=== PATIENT | male | born 1975 | race Caucasian/White ===

== ENCOUNTER → 2016-03-04 | Outpatient (CLI) | payer MEDICAID ==
--- NOTE | 2016-03-04 20:59 | MR ---
EXAMINATION TYPE: MR cervical spine wo con DATE OF EXAM: 03/04/2016 8:17 PM COMPARISON: NONE HISTORY: neck, back, and Left shoulder pain TECHNIQUE: Multiplanar, multisequence images of the cervical spine were acquired. C2-C3: No evidence for degenerative disc disease. No disc bulge/herniation or protrusion. No Canal stenosis. Foramina are patent bilaterally. C3-C4: Lateral extension of endplate disc complex, right posterior paracentral disc herniation causes anterolateral mass effect on the thecal sac and encroaches on the right neural foramen and may conta ct the anterior cervical cord. No significant central stenosis. C4-C5: Loss of disc height and signal present, small central posterior disc herniation may contact th e anterior cervical cord. Some right-sided foraminal encroachment is present. C5-C6: Posterior extension of endplate disc complex causes mass effect on the anterior thecal sac and extends laterally to cause bilateral foraminal encroachment. There is mild central canal stenosis an d possibly contacting the anterior cervical cord in the paraspinal locations left greater than right. There is associated loss of disc height and signal. C6-C7: Small posterior right paracentral extension of endplate disc complex causes minimal anterior m ass effect on the thecal sac No Canal stenosis. Foramina are patent bilaterally. C7-T1: No evidence for degenerative disc disease. No disc bulge/herniation or protrusion. No Canal stenosis. Foramina are patent bilaterally. Cervical segments are intact. There is normal alignment. Cervical spinal cord shows central increas ed signal felt likely to represent prominent aqueduct or small syrinx. Craniovertebral junction rela tionships are within normal limits. Cervical vertebral bodies show preserved height and alignment. S pondylosis is present with loss of disc height at C5-6, there is minimal endplate discogenic marrow s ignal change. There may be a thoracic scoliosis. IMPRESSION: Degenerative disc disease as described. Multilevel disc herniation. Probable prominent central aquedu ct rather than syrinx. Follow-up postcontrast images as indicated. Additional findings above.
== END | disposition home or self-care (01) ==
LOC: RADMRIMAIN 19:45
PROVIDERS: ATTEND Orthopaedic Surgery Orthopaedic Surgery of the Spine
DX: M50.11 Cervical disc disorder with radiculopathy, high cervical region (principal)
CPT/HCPCS: 72141

== ENCOUNTER → 2016-05-26 | Outpatient (CLI) | payer MEDICAID ==
[2016-05-26 14:20] VITALS: BP 110/91; PULSE 91; RESP 16
--- NOTE | 2016-05-26 14:49 | P.HPIM ---
History of Present Illness H&P Date: 05/26/16 Chief Complaint: neck and arm pain This is a 41-year-old patient referred by Dr. Martinez for chronic pain in neck, low back, and arms, worse in left shoulder. Patient has been taking medications including Tylenol #3 from neurosurgeon with some relief, but did undergo cervical JJ x 2 with Singh that has helped him for > 1 month. Patient denies adverse drug effects from medications. Patient also denies new- onset weakness, bowel/bladder incontinence, or any other signs or symptoms of cauda equina syndrome. There are no signs of acute intoxication, and no indications of medication diversion or overuse. Patient notes that pain worsens significantly with movement of his neck and standing and improves with ice, injections, and medication. Patient has used several types of medications for pain, including NSAIDS, OPIOIDS, TRAMADOL, BENZODIAZEPINES. Patient HAS NOT had surgery. Patient HAS had injections previously (JOSE M x 2). Patient HAS NOT had physical therapy recently. In addition to above, 13-point review of systems is also negative for chest pain , shortness of breath, changes in vision, changes in hearing, new onset weakness , abdominal pain, diarrhea, extreme fatigue, malaise, fever, skin changes, homicidal or suicidal ideation, or bowel or bladder incontinence. Vital Signs: Reviewed in EMR Gen: WDWN, AAOx3, NAD HEENT: NCAT, EOMI, hearing grossly normal Pulm: resp unlabored Abd: soft, NT, ND Neck: supple, trachea midline ROM in flexion cervical spine: reduced ROM in extension cervical spine: reduced Cervical paravertebral tenderness: + Cervical Facet tenderness: + bilateral Spurling's: +RUE Upper extremity: decreased hook puller strength RUE compared to LUE Neuro: CN II-XII grossly intact, muscle strength lower extremities PRESERVED Medications and Allergies Home Medications Medication Instructions Recorded Confirmed Type Citalopram Hydrobromide [CeleXA] 40 mg PO DAILY 05/26/16 05/26/16 History Allergies Allergy/AdvReac Type Severity Reaction Status Date / Time No Known Allergies Allergy Verified 05/26/16 13:56 Physical Exam Vitals: Intake and Output 05/25/16 05/26/16 05/26/16 22:59 06:59 14:59 Other: Weight 86.183 kg Patient Weight 05/27/16 06:59 Weight 86.183 kg Results Comments: MRI cervical spine without contrast demonstrates, at the C3-C4 level lateral extension of the endplate disc complex of the right posterior paracentral disc herniation causing anterolateral mass effect on the thecal sac and encroaching on the right neural foramen. At the C4-C5 level there is a small central posterior disc herniation that may contact the anterior cervical cord. C5-C6 level there is posterior extension of the endplate disc complex causing mass effect on the anterior thecal sac extending laterally to cause bilateral foraminal encroachment. There is mild central canal stenosis. At the C6-C7 level there is small posterior right paracentral extension of endplate disc complex causing minimal anterior mass effect on the thecal sac. Assessment and Plan (1) Neural foraminal stenosis of cervical spine Status: Chronic (2) Cervical spinal stenosis Status: Chronic (3) Degenerative disc disease, cervical Status: Chronic Plan: 1. Explanation: Opioid and psychological risk scores were reviewed. Diagnoses , prognoses, and multiple treatment options including but not limited to physical therapy, interventional therapies, adjuvant medical therapies, narcotic medication therapies, and surgery were discussed with the patient and all questions were answered to the patient's satisfaction. 2. Opioid agreement: Patient signed narcotic agreement, and was orally counseled to not overuse, abuse, divert, or cell medications, and to take them as prescribed by only 1 healthcare provider. The patient was also counseled to take medications as prescribed by only 1 healthcare provider and to store opioid medications in the safe and preferably locked location. Patient was also counseled against driving or operating heavy equipment while using narcotic medications and also not use alcohol or any illicit or recreational drugs. The patient verbalized understanding that lack of compliance with any of the above and likely result in failure to renew narcotic prescriptions, possible discharge from the clinic, and possible legal ramifications thereafter if indicated. 3. Counseling: The patient was counseled extensively on BODY MASS INDEX, EXERCISE. Specifically, the patient was instructed regarding the importance of weight control and exercise in the context of both chronic pain and overall health. 4. Procedures: cervical JJ in future 5. Consultations: none 6. Investigations: none 7. Medications: Tylenol #3 #30 with one refill 8. Disposition: f/u for re-eval 8 weeks; patient can call sooner to schedule cervical JJ if pain worsens PQRS measures: 1-Patient's medications are documented in the chart. 2-Tobacco use is negative, counseling given 3-Patient has not had a pneumococcal vaccine. 4-Advanced care planning discussed, patient unable to give. 5-Opioid contract signed with the patient. 6-Pain positive, follow-up visit or procedure scheduled 7-Patient's blood pressure measured and documented, WNL. 8-Patient's weight was measured, and body mass index ABOVE the normal limits, and counseling was done. Patient instructed to follow up with PCP. 9-Patient WAS NOT identified as an unhealthy alcohol user. Time with Patient: Greater than 30
== END | disposition home or self-care (01) ==
LOC: PNWHC3 13:22
PROVIDERS: ATTEND Anesthesiology
DX: M48.02 Spinal stenosis, cervical region (principal); M99.71 Connective tissue and disc stenosis of intervertebral foramina of cervical region; M50.30 Other cervical disc degeneration, unspecified cervical region; Z79.891 Long term (current) use of opiate analgesic; Z79.899 Other long term (current) drug therapy
CPT/HCPCS: 80307; 99211

== ENCOUNTER → 2016-07-15 | Outpatient (CLI) | payer MEDICAID ==
[2016-07-15 12:22] VITALS: BP 124/90; PULSE 85; RESP 16
== END | disposition home or self-care (01) ==
LOC: PNWHC3 11:54
PROVIDERS: ATTEND Specialist
DX: Z53.9 Procedure and treatment not carried out, unspecified reason (principal)

== ENCOUNTER 2017-07-29 07:43 | Day surgery (SDC) | payer MEDICAID ==
[2017-07-26 18:27] VITALS: BMI 27.2
[2017-07-29] MEDS ORDERED: LIDOCAINE 1% 20 ML VIAL (10MG/ML) FOR IV START INTRADERMA ONE (07:47)
[2017-07-29 07:53] VITALS: TEMP 98
[2017-07-29] MEDS ORDERED: LACTATED RINGERS 1,000 ML IV ONE (07:56)
[2017-07-29] MEDS ORDERED: LACTATED RINGERS 1,000 ML IV SCH (08:15)
--- NOTE | 2017-07-29 08:51 | P.PCN ---
Date of Procedure: 07/29/17 Surgeon: Jc Golden Pathology: none sent Condition: stable Disposition: PACU Description of Procedure: PREOPERATIVE DIAGNOSIS: Cervical radiculopathy. POSTOPERATIVE DIAGNOSIS: Cervical radiculopathy. PROCEDURE 1. Cervical epidural steroid injection under fluoroscopic guidance, C7-T1 level. 2. Cervical epidurogram. ANESTHESIA: Local anesthesia with 1% lidocaine and IV sedation with versed/ fentanyl EBL: Minimal PROCEDURE INDICATION: The patient with neck pain and radiculitis unresponsive to conservative treatment consents for procedure. No use of blood thinners. PROCEDURE DESCRIPTION / TECHNIQUE: The patient was seen and identified in the preoperative area. Risks, benefits, complications, and alternatives were discussed with the patient (including but not limited to incomplete pain relief, bleeding, infection, nerve damage, and allergies to medications), the patient agreed to proceed with the procedure and signed the consent after all questions were answered. Patient was taken to the OR and time out was completed to verify proper patient , position, laterality of pain, and allergies. Pt was placed in the prone position. A pillow was placed under the patients chest to increase the cervical interlaminar space. The cervical area was prepped and draped in the usual sterile fashion. Critical pause was taken. Vital signs were closely monitored during the procedure. Conscious sedation was used during the procedure to decrease patients anxiety. Using anterior-posterior fluoroscopy, the C7-T1 interlaminar space was identified and the skin over this site was marked and then infiltrated with 1% lidocaine subcutaneously in a paramedian fashion. Subsequently, a 20-gauge 3-1/2 -inch Tuohy epidural needle was inserted and advanced toward the epidural space by means of the loss of resistance technique and guided by AP and lateral fluoroscopy. After negative aspiration for blood or CSF and in the absence of paresthesias, the correct needle position in the epidural space was verified with the injection of 1 mL of the water soluble contrast dye Isovue 200 and observing an excellent epidurogram with the epidural spread of the dye, after negative aspiration for blood and CSF and in the absence of paresthesias. Again after negative aspiration, a 4 ml mixture containing 20 mg of Decadron and 2 ml of preservative free Normal Saline solution was injected and a washout of epidurogram was seen. Needle was withdrawn intact, skin was cleansed, and bandages were applied. COMPLICATIONS: None COMMENTS: DISPOSITION / PLANS: The patient was placed in a supine position and transferred to the recovery area in a stable condition for observation. There was no evidence of upper extremity motor or sensory deficit after the procedure. Patient was discharged from the recovery room after meeting discharge criteria. Home discharge instructions were given to the patient by the staff. The patient was reexamined prior to discharge and there were no issues. The patient will schedule a repeat JOSE M in 3-4 weeks.
[2017-07-29] MEDS ORDERED: IV FLUID CONTINUATION 1,000 ML IV ONE ×2 (08:55)
--- NOTE | 2017-07-29 09:05 | FL ---
Fluoroscopy HISTORY: Pain 5 seconds fluoroscopy time supplied to the referring clinician. 3 intraoperative C-arm images docume nt the procedure. See dictated report from anesthesia.
[2017-07-29 09:20] VITALS: BP 117/84; PULSE 88; RESP 18
== END 2017-07-29 09:23 | disposition home or self-care (01) ==
LOC: ORPAIN 07:43
PROVIDERS: ATTEND Anesthesiology
DX: M54.12 Radiculopathy, cervical region (principal); M96.1 Postlaminectomy syndrome, not elsewhere classified
CPT/HCPCS: 62321; J2250; J1100; J3010; Q9966

== ENCOUNTER 2017-08-17 07:22 | Day surgery (SDC) | payer BC, MEDICAID ==
[2017-08-12 15:16] VITALS: BMI 27.2
[~2017-08-17 07:22] MED LIST: LACTATED RINGERS 1,000 ML IV SCH
[2017-08-17 08:14] VITALS: RESP 16; TEMP 97.7
[2017-08-17] MEDS ORDERED: LIDOCAINE 1% 20 ML VIAL (10MG/ML) FOR IV START INTRADERMA ONE (08:15)
--- NOTE | 2017-08-17 09:01 | P.PCN ---
Date of Procedure: 08/17/17 Procedure(s) Performed: . PROCEDURE 1. Cervical epidural steroid injection under fluoroscopic guidance, C7-T1 2. Cervical epidurogram. PREOPERATIVE DIAGNOSIS: 1- Cervical radiculopathy. POSTOPERATIVE DIAGNOSIS: : 1- Cervical radiculopathy. ANESTHESIA: Local anesthesia with 1% [id number] , and IV sedation with Versed 1 mg and Fentanyl 50 mcg. EBL 0 PROCEDURE INDICATION: The patient with neck pain and radiculitis unresponsive to conservative treatment consents for procedure. PROCEDURE DESCRIPTION / TECHNIQUE: The patient was seen and identified in the preoperative area. Risks, benefits, complications, including but not limited to infections ,bleeding , allergic reactions to the medications ,and not complete pain releife, and alternatives were discussed with the patient, the patient agreed to proceed with the procedure and signed the consent. Patient was taken to the OR and time out was completed. The patient was placed in the prone position on the procedure table. A pillow was placed under the patients chest to increase the cervical interlaminar space. The cervical area was prepped and draped in the usual sterile fashion. Vital signs were closely monitored during the procedure. Conscious sedation was used during the procedure to decrease patients anxiety. Using anterior-posterior fluoroscopy, the C7-T1 interlaminar space was identified and the skin over this site was marked and then infiltrated with 1% lidocaine 3 ml subcutaneously. Subsequently, a 20-gauge 3-1/2-inch Tuohy epidural needle was inserted and advanced toward the epidural space by means of the ``hanging-drop technique and guided by AP and lateral fluoroscopy. The correct needle position in the epidural space was verified with the injection of 2 mL of the water soluble contrast dye Isovue-200 and observing an excellent epidurogram with the epidural spread of the dye, after negative aspiration for blood and CSF and in the absence of paresthesias. Again after negative aspiration, mixture containing 20 mg Dexamethasone and 2 ml of preservative-free normal saline injected and a washout of epidurogram was seen. Needle was withdrawn intact, skin was cleansed, and bandages were applied. Complications= none. Disposition= patient was placed in supine position and transferred to the recovery room area in stable condition and there was no evidence of upper or lower extremity motor or sensory deficit after the procedure patient was discharged from recovery room after discharge criteria met and home discharge instructions was given by the staff and patient will follow with the pain clinic in 2-4 weeks
[2017-08-17] MEDS ORDERED: IV FLUID CONTINUATION 1,000 ML IV ONE (09:16)
[2017-08-17 09:29] VITALS: BP 115/76; PULSE 74
--- NOTE | 2017-08-17 10:52 | FL ---
Fluoroscopy HISTORY: Pain 3 seconds fluoroscopy time supplied to the referring clinician. 1 intraoperative C-arm images docume nt the procedure. See dictated report from anesthesia.
== END 2017-08-17 09:48 | disposition home or self-care (01) ==
LOC: ORPAIN 07:22
PROVIDERS: ATTEND Specialist
DX: M54.16 Radiculopathy, lumbar region (principal)
CPT/HCPCS: 62321; J1100; J3010

== ENCOUNTER 2018-06-20 13:58 | Day surgery (SDC) | payer BC ==
[2018-06-17 10:33] VITALS: BMI 25.8
--- NOTE | 2018-06-19 16:58 | HP ---
HISTORY AND PHYSICAL REASON FOR ADMISSION: Surgery is scheduled for 06/20/2018. HISTORY OF PRESENT ILLNESS: Jhonny Ray is a 43-year-old patient seen with an injury to his right thumb with probable nail bed laceration. We discussed options. I reviewed repair nail bed laceration. Procedure, risks, complications, benefits, recovery, he was agreeable. Consent was obtained. PAST MEDICAL HISTORY: Noncontributory. PAST SURGICAL HISTORY: Noncontributory. MEDICATIONS ARE: None. ALLERGIES: None reported. SOCIAL HISTORY: Denies tobacco use. PHYSICAL EXAMINATION: Physical evaluation of his right hand, he has obvious ecchymosis of the right thumb area including the entire nail. The nail is lifted up with swelling at the matrix proximally. There was good perfusion and sensation distally. RADIOGRAPHS: Radiographs of the right thumb failed to reveal any acute osseous abnormality. IMPRESSION: Right thumb nail bed laceration. PLAN: Repair right thumb nail bed laceration. Surgery scheduled for 06/20/2018. MMODL / IJN: [id number] /
[~2018-06-20 13:58] MED LIST changes: -LACTATED RINGERS 1,000 ML IV SCH; +ceFAZolin IN SWFI 2 GM/20 ML SYRINGE IVP ONE
[2018-06-20 14:23] VITALS: RESP 16; TEMP 97.3
[2018-06-20] MEDS ORDERED: LIDOCAINE 1% 20 ML VIAL (10MG/ML) FOR IV START INTRADERMA ONE (14:34)
[2018-06-20] MEDS ORDERED: LACTATED RINGERS 1,000 ML IV ONE (14:34)
[2018-06-20] MEDS ORDERED: ONDANSETRON 4 MG/2 ML VIAL IVP ONE (14:49)
[2018-06-20] MEDS ORDERED: PROPOFOL 10 MG/ML 20 ML VIAL IV ONE (15:32)
[2018-06-20] MEDS ORDERED: fentaNYL (PF) 50 MCG/ML 2 ML AMP ONE (15:32)
[2018-06-20] MEDS ORDERED: MIDAZOLAM 2 MG/2 ML VIAL ONE (15:32)
[2018-06-20] MEDS ORDERED: BUPIVACAINE (PF) 0.5% 30 ML VIAL SQ ONE ×2 (15:42)
--- NOTE | 2018-06-20 16:07 | P.OP ---
Date of Procedure: 06/20/18 Preoperative Diagnosis: Right thumb nailbed laceration Postoperative Diagnosis: Same Procedure(s) Performed: Repair 1 cm nail bed laceration Anesthesia: MAC, local Surgeon: George Mendoza Estimated Blood Loss (ml): 0 Pathology: none sent Condition: stable Disposition: PACU Indications for Procedure: 43-year-old patient seen with a right thumb nailbed laceration. I recommended repair. He was agreeable. Consent was obtained. Operative Findings: see description of procedure Description of Procedure: The patient was taken to the operative suite. The patient received IV sedation by the department of anesthesia. The right upper extremity was prepped and draped in the normal sterile orthopedic fashion. A digital block was achieved to the right thumb utilizing 10 mL half percent plain Marcaine. Once sufficient local analgesia was noted I utilized a Lehr drain for tourniquet of the right thumb. I then remove the right thumb nail. I evacuated the hematoma. I noted approximately 1 cm nail bed laceration directly in the center of the thumbnail. I irrigated the laceration out with saline solution. I repaired this with 2 interrupted 4-0 Vicryl sutures. This approximate the nailbed laceration nicely. The nail was now placed back into the germinal matrix. The Annalise drain was released with immediate capillary refill noted to the digit. Sterile dressings were applied. The patient was awakened having tolerated procedure well.
[2018-06-20 16:40] VITALS: BP 116/79; PULSE 61
== END 2018-06-20 16:50 | disposition home or self-care (01) ==
LOC: OR 13:58
PROVIDERS: ATTEND Orthopaedic Surgery
DX: S61.111A Laceration without foreign body of right thumb with damage to nail, initial encounter (principal); M50.20 Other cervical disc displacement, unspecified cervical region; Z79.1 Long term (current) use of non-steroidal anti-inflammatories (NSAID)
CPT/HCPCS: 11760; J2250; J2405; J3010; J2704; J0690

== ENCOUNTER 2018-11-11 15:58 | Emergency (ER) | payer BC, OTHER ==
[2018-11-11 16:01] VITALS: BP 141/90; PULSE 69; RESP 18; TEMP 97.6
[2018-11-11] MEDS ORDERED: KETOROLAC 60 MG/2 ML VIAL IM STA (16:52)
--- NOTE | 2018-11-11 17:01 | XR ---
EXAMINATION TYPE: XR humerus RT DATE OF EXAM: 11/11/2018 COMPARISON: NONE HISTORY: Pain TECHNIQUE: 3 views FINDINGS: I see no fracture nor dislocation. Shoulder joint and elbow joint appear intact. IMPRESSION: Negative right humerus exam.
--- NOTE | 2018-11-11 17:17 | ED ---
General Adult HPI - General Chief complaint: Extremity Injury, Upper Stated complaint: IHS-Arm injury Time Seen by Provider: 11/11/18 16:02 Source: patient, RN notes reviewed, old records reviewed Mode of arrival: ambulatory Limitations: no limitations - History of Present Illness Initial comments: 43-year-old male patient with no pertinent past medical history presents ED chief complaint of right arm injury. 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 Patient currently has pain in the region of right biceps tendon insertion. Patient has a full active range of motion arm. Denies any other complaints at this time. Systemic: Pt denies fatigue, fever/chills, rash. Pt denies weakness, night sweats, weight loss. Neuro: Pt denies headache, visual disturbances, syncope or pre-syncope. HEENT: Pt denies ocular discharge or irritation, otalgia, rhinorrhea, pharyngitis or notable lymphadenopathy. Cardiopulmonary: Pt denies chest pain, SOB, heart palpitations, dyspnea on exertion. Abdominal/GI: Pt denies abdominal pain, n/v/d. : Pt denies dysuria, burning w/ urination, frequency/urgency. Denies new onset urinary or bowel incontinence. MSK: Pt denies loss of strength or function in extremities. Neuro: Pt denies new onset weakness, paresthesias. - Related Data Home Medications Medication Instructions Recorded Confirmed No Known Home Medications 11/11/18 11/11/18 Allergies Allergy/AdvReac Type Severity Reaction Status Date / Time No Known Allergies Allergy Verified 11/11/18 16:01 Review of Systems ROS Statement: Those systems with pertinent positive or pertinent negative responses have been documented in the HPI. ROS Other: All systems not noted in ROS Statement are negative. Past Medical History Past Medical History: Musculoskeletal Disorder Additional Past Medical History / Comment(s): CERVICAL HERNIATED DISCS-HX OF STEROID INJECTIONS., INJURY TO RIGHT THUMB NAIL. History of Any Multi-Drug Resistant Organisms: None Reported Additional Past Surgical History / Comment(s): CERVICAL STEROID INJ, surgical repair of right thumb nail Past Anesthesia/Blood Transfusion Reactions: No Reported Reaction Additional Past Anesthesia/Blood Transfusion Reaction / Comment(s): NO ANESTHESIA HX Past Psychological History: Anxiety, Depression Smoking Status: Never smoker Past Alcohol Use History: Occasional Past Drug Use History: None Reported - Past Family History Mother Family Medical History: Cancer Additional Family Medical History / Comment(s): BREAST CANCER General Exam - General Exam Comments Initial Comments: Constitutional: NAD, AOX3, Pt has pleasant affect. HEENT: NC/AT, trachea midline, neck supple, no lymphadenopathy. Posterior pharynx non erythematous, without exudates. External ears appear normal, without discharge. Mucous membranes moist. Eyes PERRLA, EOM intact. There is no scleral icterus. No pallor noted. Cardiopulmonary: RRR, no murmurs, rubs or gallops, no JVD noted. Lungs CTAB in anterior and posterior montalvo. No peripheral edema. Abdominal exam: Abdomen soft and non-distended. Abdomen non-tender to palpation in all 4 quadrants. Bowel sounds active in LLQ. No hepatosplenomegaly. No ecchymosis Neuro: CN II-XII grossly intact. No nuchal rigidity. No raccon eyes, no mclean sign, no hemotympanum. No cervical spinal tenderness. MSK: Full active range of motion of right upper extremity. Tenderness to palpation at location of proximal biceps insertion. Neurovascularly intact distally. No skin changes or ecchymosis. No posterior calf tenderness bilaterally, homans sign negative bilaterally. Posterior tibialis and radial pulse +2 bilaterally. Sensation intact in upper and lower extremities. Full active ROM in upper and lower extremities, 5/5 stregnth. Limitations: no limitations Course Vital Signs 11/11/18 15:59 Temperature 97.6 F Pulse Rate 69 Respiratory 18 Rate Blood Pressure 141/90 O2 Sat by Pulse 97 Oximetry Medical Decision Making - Medical Decision Making 43-year-old male patient with no pertinent past medical history presents ED chief complaint of right arm injury. 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 Patient currently has pain in the region of right biceps tendon insertion. Patient has a full active range of motion arm. Denies any other complaints at this time. Pt VSS, afebrile. Physical exam displayed: Full active range of motion of right upper extremity. Tenderness to palpation at location of proximal biceps insertion. Neurovascularly intact distally. No skin changes or ecchymosis. Plain film humerus did not display acute process. Patient placed in sling. Discharged with outpatient orthopedic follow-up. Pt requests to f/u [facility] Dr. Mendoza. Case discussed with Dr. Fang. Return precautions discussed. Disposition Clinical Impression: Arm injury Disposition: HOME SELF-CARE Condition: Stable Instructions (If sedation given, give patient instructions): Tendon Rupture (ED) Additional Instructions: Patient to adhere to previously discussed treatment plan and will take medication(s) as directed. Patient to follow up with PCP in 1-2 days. Patient to return to ED if symptoms do not improve. Continue to use sling, use Tylenol and Motrin for pain. Follow up with orthopedic consult tomorrow. Is patient prescribed a controlled substance at d/c from ED?: No Referrals: Shyanne Umana MD [Primary Care Provider] - 1-2 days George Mendoza DO [Doctor of Osteopathic Medicine] - 1-2 days
== END 2018-11-11 17:25 | disposition home or self-care (01) ==
LOC: EC 15:58
DX: S49.91XA Unspecified injury of right shoulder and upper arm, initial encounter (principal); Z87.39 Personal history of other diseases of the musculoskeletal system and connective tissue; X50.9XXA Other and unspecified overexertion or strenuous movements or postures, initial encounter; Y93.89 Activity, other specified; Y92.512 Supermarket, store or market as the place of occurrence of the external cause; Y99.0 Civilian activity done for income or pay
CPT/HCPCS: 99284; 96372; 73060; J1885

== ENCOUNTER → 2018-11-15 | Outpatient (CLI) | payer OTHER ==
[2018-11-15 16:07] LABS: Potassium 4.3 mmol/L (3.5-5.1)
[2018-11-15 16:17] LABS: Basophils % (A) 1 %; Eosinophils # (A) 0.1 k/uL (0-0.7); Eosinophils % (A) 2 %; HCT 44.4 % (39.0-53.0); HGB 14.7 gm/dL (13.0-17.5); Lymphocytes # (A) 1.5 k/uL (1.0-4.8); Lymphocytes % (A) 32 %; MCH 31.4 pg (25.0-35.0); MCHC 33.1 g/dL (31.0-37.0); MCV 94.8 fL (80.0-100.0); Mean Platelet Volume 7.3; Monocytes # (A) 0.3 k/uL (0-1.0); Monocytes % (A) 7 %; Neutrophils # (A) 2.5 k/uL (1.3-7.7); Neutrophils % (A) 56 %; Platelet Count 268 k/uL (150-450); RBC 4.68 m/uL (4.30-5.90); RDW 14.9 % (11.5-15.5); WBC 4.5 k/uL (3.8-10.6)
== END | disposition home or self-care (01) ==
LOC: LABPAT 15:13
PROVIDERS: ATTEND Orthopaedic Surgery
DX: Z01.812 Encounter for preprocedural laboratory examination (principal); S46.291D Other injury of muscle, fascia and tendon of other parts of biceps, right arm, subsequent encounter
CPT/HCPCS: 36415; 80051; 85025

== ENCOUNTER 2018-11-17 12:18 | Day surgery (SDC) | payer BC, OTHER ==
[2018-11-16 11:59] VITALS: BMI 25.7
--- NOTE | 2018-11-16 19:47 | HP ---
HISTORY AND PHYSICAL DATE OF SURGERY: 11/17/2018 Jhonny Ray is a 43-year-old patient seen with a right distal biceps tendon rupture. I recommended right distal biceps tendon repair. I reviewed the procedure, risks, complications, benefits and recovery. The patient was agreeable. Consent was obtained. PAST MEDICAL HISTORY: Noncontributory. PAST SURGICAL HISTORY: Noncontributory. DAILY MEDICATIONS: None. ALLERGIES: NONE. SOCIAL HISTORY: Denies tobacco use. PHYSICAL EVALUATION RIGHT ELBOW: There is diffuse ecchymosis along the antecubital fossa area. The distal biceps is not palpable. There is tenderness along the proximal radius and biceps tendon distally. There is weakness with flexion of the elbow and supination of the forearm. His distal neurovascular exam is intact. RADIOGRAPHS: Radiographs of the right elbow failed to reveal any osseous abnormality. IMPRESSION: Right distal biceps tendon rupture. PLAN: Right distal biceps tendon repair. MMODL / IJN: [id number] /
[~2018-11-17 12:18] MED LIST changes: +DEXAMETHASONE SOD PHOSPHATE 10 MG/ML 1 ML VIAL IV ONE; +HYDROmorphone 0.5 MG/0.5 ML SYRINGE IVP PRN; +LACTATED RINGERS 1,000 ML IV SCH; +LIDOCAINE 1% 20 ML VIAL (10MG/ML) FOR IV START INTRADERMA PRN; +MIDAZOLAM 2 MG/2 ML VIAL IV PRN; +ONDANSETRON 4 MG/2 ML VIAL IVP ONE; -ceFAZolin IN SWFI 2 GM/20 ML SYRINGE IVP ONE; +fentaNYL (PF) 50 MCG/ML 2 ML AMP IV PRN
[2018-11-17] MEDS ORDERED: MIDAZOLAM (PF) 2 MG/2 ML VIAL IVP ONE (13:29)
[2018-11-17] MEDS ORDERED: PROPOFOL 10 MG/ML 20 ML VIAL IV ONE (13:59)
[2018-11-17] MEDS ORDERED: ROPIVACAINE 5 MG/ML 30 ML VIAL ONE (13:59)
[2018-11-17] MEDS ORDERED: LIDOCAINE 1% INJ 10MG/ML (20 ML MDV) ONE (13:59)
[2018-11-17] MEDS ORDERED: DEXAMETHASONE SOD PHOSPHATE 4 MG/ML 1 ML VIAL ONE (13:59)
[2018-11-17] MEDS ORDERED: SUCCINYLCHOLINE CHLORIDE 100 MG/5 ML SYR IV ONE (13:59)
[2018-11-17] MEDS ORDERED: ceFAZolin 1,000 MG in SODIUM CHLORIDE 0.9% 1,000 ML IRRIGATION ONE (14:44)
[2018-11-17 15:49] VITALS: TEMP 96.8
--- NOTE | 2018-11-17 15:50 | P.OP ---
Date of Procedure: 11/17/18 Preoperative Diagnosis: Right distal biceps tendon rupture Postoperative Diagnosis: Right distal biceps tendon rupture Procedure(s) Performed: Right distal biceps tendon repair Implants: 1 [employer] Endobutton and 1 [employer] 8.0 bio composite tenodesis screw Anesthesia: GETA, regional (Interscalene block) Surgeon: George Mendoza [employer] Instructor #1: Hardik Erazo Estimated Blood Loss (ml): 15 Pathology: none sent Condition: stable Disposition: PACU Indications for Procedure: 43-year-old patient seen with a right distal biceps tendon rupture. I recommended repair. The patient was agreeable and consent was obtained. Operative Findings: See description of procedure Description of Procedure: The patient was taken to the operative suite. The patient received preoperative IV antibiotics. The patient received a interscalene block for postoperative management. The patient underwent a general anesthetic by the department of anesthesia. The tourniquet was placed proximal right upper extremity. The right upper extremity was prepped and draped in the normal sterile orthopedic fashion. An incision was now made 3 cm distal to the elbow flexion crease. We identified the antebrachial cutaneous nerve and retracted it laterally. We now continued our blunt dissection towards the biceps tendon. I was able to identify the retracted tendon and delivered through the incision. I debrided the end of the tendon to remove any degenerative tissue making sure passed through a 7 mm sizing block. I now whipstitch the 2.5 distal end of the biceps tendon using a fiber loop. We then placed the tendon back into the wound to keep it moist. I now carefully dissected down identifying the proximal radius. I identified the radial tuberosity. With the elbow full extension. Supination in the branch PA's assistance I drilled a bicortical 3.2 mm hole through the radial tuberosity. I now drilled a 8 mm unicortical tunnel over 3.2 mm guide pin. I copiously irrigated the wound making sure to remove any debris or I now passed limbs of suture through our Endobutton in a manner that would allow a tension sliding technique. I now passed the ball through the distal hole and made sure it flipped. I now pulled the free suture limbs seating the button against the radius and pulling the tendon into the socket. I felt it was fully docked into our bone tunnel. I now tied it to the tendon. I then loaded our 8 mm bio compositescrew inserted through one of the sutures and down into a towel. I now deployed the screw with good bite and purchase noted. I tied a knot over the screw to further stabilize it and now the suture limbs were clipped. We had good fixation was good range of motion elbow noted with good fixation of the tendon. We again irrigated the wound out copiously. The tourniquet was not utilized. We had good hemostasis. The subcutaneous soft tissues were approximated with 2-0 Vicryl. The skin was approximated with 3-0 nylon. We applied sterile dressings followed by loose web bone Minh bandage. The patient was awakened, transferred to a bed and then recovery stable condition. Gurinder KO assisted with the procedure.
[2018-11-17] MEDS ORDERED: ONDANSETRON 4 MG/2 ML VIAL IVP ONE (16:05)
[2018-11-17] MEDS ORDERED: LACTATED RINGERS 1,000 ML IV ONE (16:26)
[2018-11-17 16:55] VITALS: RESP 18
[2018-11-17 17:52] VITALS: BP 113/78; PULSE 71
--- NOTE | 2018-11-17 21:12 | P.ANPRN ---
Procedure Note - Anesthesia - Nerve Block Performed Right Interscalene Single Time Out Performed: Yes Date of Procedure: 11/17/18 Procedure Start Time: 13:29 Procedure Stop Time: 13:33 Location of Patient Procedure: PreOp Indication: Acute Post-Operative Pain, Requested by Surgeon Sedation Type: Sedate with meaningful contact maintained Preparation: Sterile Prep Position: Supine Needle Types: Pajunk Needle Gauge: 21 Ultrasound used to visualize needle placement: Yes Ultrasound used to observe medication spread: Yes Blood Aspirated: No Pain Paresthesia on Injection Noted: No Resistance on Injection: Normal Image Stored and Saved: Yes Events: Uneventful and Well Tolerated (ropi .5% 20cc plus dexamethasone 4mg)
== END 2018-11-17 17:50 | disposition home or self-care (01) ==
LOC: OR 12:18
PROVIDERS: ATTEND Orthopaedic Surgery
DX: S46.211A Strain of muscle, fascia and tendon of other parts of biceps, right arm, initial encounter (principal)
CPT/HCPCS: 24340; 64415; 76942; C1713; J1100 ×2; J0690; J2405; J2001; J2795; J0330; J2704; J2250

== ENCOUNTER → 2021-05-01 | Outpatient (CLI) | payer MEDICAID ==
[2021-05-01 19:29] LABS: Basophils # (A) 0.02 X 10*3/uL (0.00-0.10); Basophils % (A) 0.4 %; Eosinophils # (A) 0.07 X 10*3/uL (0.04-0.35); Eosinophils % (A) 1.4 %; HCT 43.9 % (39.6-50.0); HGB 14.4 g/dL (13.0-17.0); Immature Grans, Automated 0.2 %; Lymphocytes # (A) 1.72 X 10*3/uL (0.90-5.00); Lymphocytes % (A) 33.4 %; MCH 31.4 pg (27.0-32.0); MCHC 32.8 g/dL (32.0-37.0); MCV 95.6 fL (80.0-97.0); Mean Platelet Volume 10.6 fL (9.5-12.2); Monocytes % (A) 9.7 %; NRBC Per 100 WBC 0 /100 WBCS (0.0-0.0); Neutrophils # (A) 2.83 X 10*3/uL (1.80-7.70); Neutrophils % (A) 54.9 %; Platelet Count 269 X 10*3/uL (140-440); RBC 4.59 X 10*6/uL (4.40-5.60); RDW 12.9 % (11.5-14.5); WBC 5.15 X 10*3/uL (4.50-10.00)
[2021-05-01 20:35] LABS: Bacteria,Urine None Seen /HPF (None Seen); RBC,Urine 0-2 /HPF (0-2); WBC,Urine 0-5 /HPF (0-5)
[2021-05-01 20:36] LABS: Appearance,Urine Turbid (Clear); Bilirubin,Urine Negative (Negative); Blood,Urine Negative (Negative); Color,Urine Yellow (Yellow); Ketones,Urine Trace mg/dL (Negative); Leukocyte Esterase,Urine Trace (Negative); Nitrite,Urine Negative (Negative); Protein,Urine Negative (Negative); Specific Gravity,Urine 1.022 (1.001-1.030); Urobilinogen,Urine 0.2 (0.2,1.0)
[2021-05-01 23:26] LABS: ALT 14 U/L (10-49); AST 19 U/L (14-35); African American GFR (CKD) 87.4 (60.0-200.0); Albumin 4.5 g/dL (3.8-4.9); Albumin/Globulin Ratio 1.79 (1.60-3.17); Alkaline Phosphatase 66 U/L (41-126); Blood Urea Nitrogen 18.6 mg/dL (9.0-27.0); Calcium 9.3 mg/dL (8.7-10.3); Carbon Dioxide 23.3 mmol/L (20.0-27.5); Chloride 103 mmol/L (96-109); Chol/HDL Ratio 3.33 Ratio; Globulin 2.5 g/dL (1.6-3.3); Glucose 88 mg/dL (70-110); LDL Cholesterol,Calculated 115.9 mg/dL (0.0-131.0); Non-African American GFR(CKD) 75.4 (60.0-200.0); Potassium 4.3 mmol/L (3.5-5.5); Sodium 139 mmol/L (135-145)
== END | disposition home or self-care (01) ==
LOC: LABWHC1 11:29
PROVIDERS: ATTEND Internal Medicine Critical Care Medicine
DX: Z00.00 Encounter for general adult medical examination without abnormal findings (principal)
CPT/HCPCS: 36415; 80053; 80061; 81001; 82306; 84439; 84443; 85025

== ENCOUNTER → 2023-01-26 | Outpatient (CLI) | payer MEDICAID ==
[2023-01-26 11:19] LABS: Chol/HDL Ratio 4.05 Ratio; LDL Cholesterol,Calculated 139.3 mg/dL (0.0-131.0)
== END | disposition home or self-care (01) ==
LOC: LABWHC1 07:03
PROVIDERS: ATTEND Internal Medicine
DX: R07.9 Chest pain, unspecified (principal); Z82.49 Family history of ischemic heart disease and other diseases of the circulatory system
CPT/HCPCS: 36415; 80061; 83695

== ENCOUNTER → 2024-03-08 | Outpatient (CLI) | payer MEDICAID ==
--- NOTE | 2024-03-08 21:08 | MR ---
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 IV Contrast: mL (None, if empty) FINDINGS: Alignment: The cervical vertebral bodies have preserved heights. Alignment is within normal limits gi alem patient positioning. Bones: Bone signal is within normal limits. No abnormal bone marrow edema on inversion recovery seque nces. Cord: Central dot of high T2 signal extends along the spinal cord essentially from the top of the fie ld-of-view at C2-T1. This measures approximately 1 mm. The spinal cord is unremarkable with regards t o their signal intensity and morphology. Discs: Intervertebral disc signal is maintained. C2-C3: No significant disc pathology. The spinal canal is patent. No neural foraminal stenosis. C3-C4: Eccentric right central/right subarticular disc osteophyte complex impresses upon the spinal c ord anteriorly slightly. No significant spinal canal stenosis. There is mild to moderate right neural foraminal stenosis left neural foramen is patent. C4-C5: No significant disc pathology. The spinal canal is patent. No neural foraminal stenosis. C5-C6: A disc osteophyte complex is present which minimally narrows the ventral subarachnoid space an d closely approximate the anterior spinal cord.. Bilateral facet and uncovertebral joint arthropath y are present with moderate bilateral neural foraminal stenosis. C6-C7: No significant disc pathology. The spinal canal is patent. Bilateral facet and uncovertebral joint arthropathy are present with mild to moderate bilateral neural foraminal stenosis. C7-T1: No significant disc pathology. The spinal canal is patent. No neural foraminal stenosis. Other: None. IMPRESSION: 1. No evidence for disc herniation or significant spinal canal stenosis. 2. Mild to moderate disc degeneration with associated osteoarthritic changes. Eccentric right osteoph yte at C3-C4 and central osteophyte at C5-C6 mildly impresses upon the spinal cord. No foraminal sten osis worse at C5-C6 with moderate bilateral and mild to moderate C6-C7 3. 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 Extending from C2 to suspected the [id number]. Not si gnificantly changed from 2017. [facility], , 03/08/2024 9:05 PM
== END | disposition home or self-care (01) ==
LOC: RADMRIMAIN 18:00
PROVIDERS: ATTEND Physical Medicine & Rehabilitation
DX: M50.11 Cervical disc disorder with radiculopathy, high cervical region (principal); M47.22 Other spondylosis with radiculopathy, cervical region; M25.78 Osteophyte, vertebrae
CPT/HCPCS: 72141